=== PATIENT | female | born 1965 | race Caucasian/White ===

== ENCOUNTER 2023-08-03 16:41 | Emergency (ER) | payer OTHER, SELFPAY ==
[2023-08-03 17:01] VITALS: BP 143/82; PULSE 75; RESP 16; TEMP 37.2; O2SAT 97
--- NOTE | 2023-08-03 17:14 | ED.GENADULT ---
HPI - General Adult General Chief complaint: Skin/Abscess/Foreign Body Stated complaint: left big toe red,swollen,painful Time Seen by Provider: 08/03/23 17:14 Source: patient Mode of arrival: ambulatory Limitations: no limitations History of Present Illness HPI narrative: 58-year-old female patient presents to clinic with complaints of open sore on her foot. Patient reports that June 23 she went to the plating stripper and had him remove the left great toenail due to ingrown toenail. Patient states she had a follow-up a week later and everything was normal. Approximately 2 weeks after that patient noticed that she was having an open sore. Patient reports trying to call the plating stripper to have them look at it but they told her that they could not get her in for her a couple months. Over the last 2 weeks patient has noticed that it has increased and drainage has gotten bright red the great toe is swollen with an erythema and hot to the touch. There is purulent drainage coming from the nail bed. Patient denies fever chills and body aches. Patient states it does not really hurt. Related Data Home Medications Medication Instructions Recorded Confirmed hydrochlorothiazide 12.5 mg capsule 12.5 mg PO DAILY 08/03/23 08/03/23 paroxetine HCl 10 mg tablet 10 mg PO DAILY 08/03/23 08/03/23 progesterone micronized 100 mg 100 mg PO DAILY 08/03/23 08/03/23 capsule Allergies Allergy/AdvReac Type Severity Reaction Status Date / Time iodine Allergy Unknown Unknown Verified 08/03/23 16:56 Shrimp Allergy Unknown Unknown Uncoded 08/03/23 16:56 Review of Systems Review of Systems: CONSTITUTIONAL: Denies fever, chills, or sweats. EYES: Denies visual changes, redness, or discharge. ENT: Denies rhinorrhea, congestion, sore throat, or otalgia. CARDIOVASCULAR: Denies chest pain, palpitations, or edema. RESPIRATORY: Denies cough or dyspnea. GASTROINTESTINAL: Denies abdominal pain, nausea, vomiting, or diarrhea. GENITOURINARY: Denies dysuria or hematuria. SKIN: Denies rash or itching. Left great toe is red, swollen, and has yellow creamy discharge. Patient states that does not hurt. MUSCULOSKELETAL: Denies back pain, joint pain, or myalgia. NEUROLOGIC: Denies headache, numbness, or weakness. PSYCHIATRIC: Denies anxiety or depression. [facility] Past Medical History Medical History (Updated 08/03/23 @ 17:35 by PAOLA Mccall) Chronic venous insufficiency of lower extremity Environmental allergies GERD without esophagitis History of bilateral flank pain right side - 12/2016 History of peripheral edema Ingrowing right great toenail Rosacea Venous dermatitis legs - 2017 Surgical History Surgical History No pertinent past surgical history Family History Family History Father Patient's father is , Onset Age: 51 Family history of malignant neoplasm, Onset Age: 51 Sibling Carcinoma of colon, Onset Age: 57 Family history of malignant neoplasm of breast in first degree relative Mother Carcinoma of colon, Onset Age: 60 Social History Social History Smoking status: Former smoker Second hand tobacco smoke exposure: No Smoking end date: 10/06/12 Alcohol intake: never Substance use: never Substance use type: does not use Comments At the time of my signature I agree with nursing past medical history, surgical, social, and family history. There is no relevant family history pertinent to the presenting complaint. Exam Narrative: GENERAL: Well-appearing, well-nourished, and in no acute distress. HEAD: Normocephalic, atraumatic. EYES: PERRLA and EOMI. ENT: Nares clear, no rhinorrhea or epistaxis. Mucous membranes moist. NECK: Supple. No lymphadenopathy CHEST: Clear to auscultation. No respiratory distress. HEART: Regular rate and rhythm. No
== END 2023-08-03 17:40 | disposition home or self-care (01) ==
PROVIDERS: Emergency Provider Nurse Practitioner Family; PCP Nurse Practitioner
DX: L03.032 Cellulitis of left toe (principal); L02.612 Cutaneous abscess of left foot; B95.1 Streptococcus, group B, as the cause of diseases classified elsewhere; I73.9 Peripheral vascular disease, unspecified; I87.2 Venous insufficiency (chronic) (peripheral); K21.9 Gastro-esophageal reflux disease without esophagitis
CPT/HCPCS: 87070; 87075; 87147; 87205; 99213; G0463

== ENCOUNTER 2024-03-21 20:27 | Emergency (ER) | payer OTHER, SELFPAY ==
[2024-03-21 20:29] VITALS: BP 181/80; PULSE 80; RESP 20; TEMP 36.9; O2SAT 94
[2024-03-21] MEDS: FUROSEMIDE 20 MG TABLET PO (21:10)
--- NOTE | 2024-03-21 21:57 | ED.EXTPRO ---
HPI - Extremity Problem General Chief complaint: Extremity Problem,Nontraumatic Stated complaint: R leg swelling Time Seen by Provider: 03/21/24 20:51 History of Present Illness HPI Narrative: Patient has had swollen legs for years, and was being seen for several chronic wounds to her feet, when she noticed she had a small ulcer to her lower right leg, had been going on for about a week, and today started noticing that there is fluid coming out of it. Related Data Home Medications Medication Instructions Recorded Confirmed hydrochlorothiazide 12.5 mg capsule 12.5 mg PO DAILY 08/03/23 08/03/23 paroxetine HCl 10 mg tablet 10 mg PO DAILY 08/03/23 08/03/23 progesterone micronized 100 mg 100 mg PO DAILY 08/03/23 08/03/23 capsule Allergies Allergy/AdvReac Type Severity Reaction Status Date / Time iodine Allergy Unknown Unknown Verified 03/21/24 20:48 Shrimp Allergy Unknown Unknown Uncoded 08/03/23 16:56 Review of Systems Review of Systems: All systems reviewed & are unremarkable except as noted in HPI and below PMFSH Past Medical History Medical History (Updated 03/21/24 @ 21:12 by Marcela Henley MD) Chronic venous insufficiency of lower extremity Environmental allergies GERD without esophagitis History of bilateral flank pain right side - 12/2016 History of peripheral edema Ingrowing right great toenail Rosacea Venous dermatitis legs - 2017 Surgical History Surgical History No pertinent past surgical history Family History Family History Father Patient's father is , Onset Age: 51 Family history of malignant neoplasm, Onset Age: 51 Sibling Carcinoma of colon, Onset Age: 57 Family history of malignant neoplasm of breast in first degree relative Mother Carcinoma of colon, Onset Age: 60 Social History Social History Smoking status: Former smoker Second hand tobacco smoke exposure: No Smoking end date: 10/06/12 Alcohol intake: never Substance use: never Substance use type: does not use Exam Narrative: EXAMINATION OF ORGAN SYSTEMS/BODY AREAS: Constitutional: Vital signs per nursing GENERAL:[No acute distress, non-toxic appearing.] HEAD: Normal with no signs of head trauma. EYES: EOMI, conjunctiva normal ENT: Hearing grossly intact LUNGS: Nonlabored breathing. HEART: [Regular rate and rhythm] ABD: no distension EXT: Normal range of motion; bilateral lower extremity edema, slightly pitting, tiny ulcer right lower anterior leg, no surrounding erythema or induration or fluctuance, minimal tenderness, it is continuously weeping clear fluid SKIN: see above NEURO: [Alert and oriented x 3. No gross focal sensory or strength deficits.] PSYCH: Normal affect Course Vital Signs Vital signs: Vital Signs Temperature 98.4 F 03/21/24 20:29 Pulse Rate 80 03/21/24 20:29 Respiratory Rate 20 03/21/24 20:29 Blood Pressure 181/80 H 03/21/24 20:29 Pulse Oximetry 94 03/21/24 20:29 Oxygen Delivery Room Air 03/21/24 20:29 Temperature 98.0 F 03/21/24 22:00 Pulse Rate 74 03/21/24 22:00 Respiratory Rate 18 03/21/24 22:00 Blood Pressure 150/60 H 03/21/24 22:00 Pulse Oximetry 97 03/21/24 22:00 Oxygen Delivery Room Air 03/21/24 20:29 MDM - Extremity (Nontraumatic) MDM Narrative Medical decision making narrative: patient presenting with weeping leg ulcer, she has had chronic bilateral lower extremity edema for quite a while but today started noticing that there was water oozing out of the ulcer continuously and has soaked several pads. a taken for those on a there is no signs of infection whatsoever, the fluid leaking out is completely clear, I did place a small amount of pressure with a gauze and tape over the lesion and it does appear to have slowed /stopped. I do susp
[2024-03-21 22:00] VITALS: BP 150/60; PULSE 74; RESP 18; TEMP 36.7; O2SAT 97
== END 2024-03-21 22:00 | disposition home or self-care (01) ==
PROVIDERS: Emergency Provider Emergency Medicine; PCP Nurse Practitioner
DX: L97.909 Non-pressure chronic ulcer of unspecified part of unspecified lower leg with unspecified severity (principal); Z87.891 Personal history of nicotine dependence
CPT/HCPCS: 99283; A9270

== ENCOUNTER 2024-04-19 15:50 | Emergency (ER) | payer OTHER, SELFPAY ==
--- NOTE | 2024-04-19 18:53 | ED.EXTPRO ---
HPI - Extremity Problem General Chief complaint: Extremity Problem,Nontraumatic Stated complaint: leg wounds draining Time Seen by Provider: 04/19/24 18:26 History of Present Illness HPI Narrative: 59-year-old female presenting with draining from her leg. Patient states that she has had a very tiny ulcer on the front side of her right lower leg for the last month or 2. States that she was seen here at the beginning of last month for the same complaint. She was able to go home with Lasix and wound care and states that she was doing well. She started having itching in the area when she was using dressings should so she stopped dressingit and then she noticed it started leaking again this weekend. States that her legs are at their normal level of swelling. She denies fevers. No redness or pain. No further complaints. Related Data Home Medications Medication Instructions Recorded Confirmed hydrochlorothiazide 12.5 mg capsule 12.5 mg PO DAILY 08/03/23 08/03/23 paroxetine HCl 10 mg tablet 10 mg PO DAILY 08/03/23 08/03/23 progesterone micronized 100 mg 100 mg PO DAILY 08/03/23 08/03/23 capsule Allergies Allergy/AdvReac Type Severity Reaction Status Date / Time iodine Allergy Unknown Unknown Verified 04/19/24 18:23 Shrimp Allergy Unknown Unknown Uncoded 04/19/24 18:23 Review of Systems Review of Systems: All systems reviewed & are unremarkable except as noted in HPI and below PMFSH Past Medical History Medical History Chronic venous insufficiency of lower extremity Environmental allergies GERD without esophagitis History of bilateral flank pain right side - 12/2016 History of peripheral edema Ingrowing right great toenail Rosacea Venous dermatitis legs - 2017 Surgical History Surgical History No pertinent past surgical history Family History Family History Father Patient's father is , Onset Age: 51 Family history of malignant neoplasm, Onset Age: 51 Sibling Carcinoma of colon, Onset Age: 57 Family history of malignant neoplasm of breast in first degree relative Mother Carcinoma of colon, Onset Age: 60 Social History Social History Smoking status: Former smoker Second hand tobacco smoke exposure: No Smoking end date: 10/06/12 Alcohol intake: never Substance use: never Substance use type: does not use Exam Narrative: GENERAL: Well-appearing, nontoxic, no acute distress HEAD: Normocephalic, atraumatic. EYES: PERRLA and EOMI. ENT: Grossly unremarkable NECK: Supple. CHEST: No respiratory distress. HEART: Regular rate and rhythm EXTREMITIES: bilateral pitting edema up to mid calf; 1cm ulceration anterior R rao with clear drainage, no tenderness, no erythema, no purulence SKIN: Warm, dry, as above NEURO: Alert and oriented x3. PSYCH: Normal mood and affect. MDM - Extremity (Nontraumatic) MDM Narrative Medical decision making narrative: [age] year old female presenting with drainage from a chronic ulcer on her right leg. Exam remarkable for the above. There is no evidence of infection. The ulcer is draining clear fluid. No tenderness or erythema. States that it did improve with the Lasix and consistent wound care. Will send in for some more Lasix and advised that she restart the wound care and try to elevate the leg as much as possible. Recommend close PCP follow-up. Appropriate return precautions given. Discharged in stable condition. Differential Diagnosis Differential diagnosis: Likely cellulitis, lower extremity edema and other (Chronic leg wound) Medical Records Attestation: I reviewed the patient's medical records. Critical Care Time Critical Care Time Critical Care Time: No Discharge Plan Discharge Clinical Impres
== END 2024-04-19 19:13 | disposition home or self-care (01) ==
PROVIDERS: Emergency Provider Emergency Medicine; PCP Nurse Practitioner
DX: L97.819 Non-pressure chronic ulcer of other part of right lower leg with unspecified severity (principal); I87.2 Venous insufficiency (chronic) (peripheral); K21.9 Gastro-esophageal reflux disease without esophagitis; Z79.82 Long term (current) use of aspirin; Z79.899 Other long term (current) drug therapy
CPT/HCPCS: 99283

== ENCOUNTER 2024-07-19 10:16 | Emergency (ER) | payer OTHER, SELFPAY ==
--- NOTE | ~2024-07-19 | US_ITS ---
EXAMINATION: US venous doppler LE RT DATE: 07/19/2024 11:51 INDICATION: Right lower limb pain, swelling and erythema TECHNIQUE: Grayscale ultrasound images without and with compression and Doppler ultrasound images of the right lower extremity veins were obtained. COMPARISON: 05/25/2019 FINDINGS: The visualized portions of right common femoral vein, profunda (deep) femoral vein, femoral vein, pop liteal vein, peroneal trunk, gastrocnemius vein and greater saphenous vein outflow are patent. The po sterior tibial and peroneal veins were unable to be visualized at the right calf due primarily to pat ient body habitus. IMPRESSION: 1. No deep venous thrombosis in the right lower limb. Right posterior tibial and peroneal veins unab le to be clearly visualized due to to body habitus. Reviewed, dictated and finalized at location A. [facility] IMPRESSION: 1. No deep venous thrombosis in the right lower limb. Right posterior tibial a nd peroneal veins unable to be clearly visualized due to to body habitus.
--- NOTE | ~2024-07-19 | XR_ITS ---
EXAMINATION: XR chest 1V portable DATE: 07/19/2024 11:25 INDICATION: Right lower limb swelling TECHNIQUE: frontal view of the chest was obtained. COMPARISON: Chest radiograph dated 01/02/2017 FINDINGS: The lungs remain clear with no focal airspace opacities, pulmonary edema, pleural effusion or pneumot horax. Heart size is normal. Moderate sized hiatal hernia. IMPRESSION: 1. No acute cardiopulmonary disease. 2. Moderate-sized hiatal hernia. Reviewed, dictated and finalized at location A. [facility]
--- NOTE | 2024-07-19 11:29 | ED_ITS ---
HPI - General Adult General Chief complaint: Extremity Problem,Nontraumatic Stated complaint: RLE problems Time Seen by Provider: 07/19/24 11:13 History of Present Illness HPI narrative: 59-year-old female presenting to the emergency department for evaluation for right lower extremity swelling. Patient does have a prior history of chronic venous stasis and lymphedema and states she has had this issue previously. Patient has no prior history of PE or DVT and has no prior history of cellulitis diagnosis. Patient states that her leg swelling has worsened over the last 4-5 days and patient does have increased weeping from the leg. Patient does take Lasix. Related Data Home Medications Medication Instructions Recorded Confirmed hydrochlorothiazide 12.5 mg capsule 12.5 mg PO DAILY 08/03/23 08/03/23 paroxetine HCl 10 mg tablet 10 mg PO DAILY 08/03/23 08/03/23 progesterone micronized 100 mg 100 mg PO DAILY 08/03/23 08/03/23 capsule Allergies Allergy/AdvReac Type Severity Reaction Status Date / Time iodine Allergy Unknown Unknown Verified 04/19/24 18:23 Shrimp Allergy Unknown Unknown Uncoded 04/19/24 18:23 Review of Systems Review of Systems: All systems reviewed & are unremarkable except as noted in HPI and below PMFSH Past Medical History Medical History (Updated 07/19/24 @ 13:11 by Torsten Odonnell MD) Chronic venous insufficiency of lower extremity Environmental allergies GERD without esophagitis History of bilateral flank pain right side - 12/2016 History of peripheral edema Ingrowing right great toenail Rosacea Venous dermatitis legs - 2017 Surgical History Surgical History No pertinent past surgical history Family History Family History Father Patient's father is , Onset Age: 51 Family history of malignant neoplasm, Onset Age: 51 Sibling Carcinoma of colon, Onset Age: 57 Family history of malignant neoplasm of breast in first degree relative Mother Carcinoma of colon, Onset Age: 60 Social History Social History Smoking status: Former smoker Second hand tobacco smoke exposure: No Smoking end date: 10/06/12 Alcohol intake: never Substance use: never Substance use type: does not use Exam Narrative: APPEARANCE: Well appearing, no pain, no distress, well-nourished. HEAD: normocephalic, atraumatic. EYES: PERRLA/EOMI, conjunctivae clear. NOSE: Normal no drainage EARS:TMS clear with good light reflex. THROAT: Pharynx clear, no exudate. NECK: Supple. No adenopathy, no masses. RESPIRATORY: Airway patent, respirations nonlabored. Clear to auscultation bilaterally, no rales, rhonchi, wheezing. CARDIOVASCULAR: Regular rate and rhythm without murmurs rubs or gallops. ABDOMINAL: Soft, nontender, nondistended, normal bowel sounds MUSCULOSKELETAL: Right lower extremity edema and cutaneous changes consistent with chronic venous stasis. NEURO: Alert. Cranial nerves II through XII intact. Good gait. Good coordination SKIN: Warm, dry. Normal Color Course Vital Signs Vital signs: Vital Signs Pulse Rate 64 07/19/24 13:30 Respiratory Rate 17 07/19/24 13:30 Blood Pressure 159/82 H 07/19/24 13:30 Pulse Oximetry 97 07/19/24 13:30 Pulse Rate 64 07/19/24 13:30 Respiratory Rate 17 07/19/24 13:30 Blood Pressure 159/82 H 07/19/24 13:30 Pulse Oximetry 97 07/19/24 13:30 Medical Decision Making [facility] Narrative Medical decision making narrative: 59-year-old female presents emergency department for evaluation for right lower extremity swelling. Patient is afebrile with no leukocytosis and a stable hemoglobin of 13.3. Patient's INR is 1.0. No significant abnormalities on the patient's CMP ultrasound was negative for DVT. Exam is consistent with chronic venous stasis. Patient was treated with additional IV Lasix. Patient was encouraged close follow-up with her primary care physician. Patient does admit to having some increased salt and sugar intake over the last few days. This may be contributing to her acutely worsened edema. Patient was advised to continue to take her Lasix as directed. All questions concerns were addressed patient was well-appearing at time of discharge. Differential Diagnosis Differential Diagnosis: Cellulitis, and DVT, chronic venous stasis Vital Signs Vital Signs: Vital Signs Pulse Rate 64 07/19/24 13:30 Respiratory Rate 17 07/19/24 13:30 Blood Pressure 159/82 H 07/19/24 13:30 Pulse Oximetry 97 07/19/24 13:30 Pulse Rate 64 07/19/24 13:30 Respiratory Rate 17 07/19/24 13:30 Blood Pressure 159/82 H 07/19/24 13:30 Pulse Oximetry 97 07/19/24 13:30 Lab Data Lab results reviewed: Yes I reviewed the patient's lab results. 07/19/24 11:53 07/19/24 11:53 Labs: Lab Results 07/19/24 Range/Units 11:53 WBC 6.3 (4.5-10.0) K/mm3 RBC 4.09 L (4.2-5.4) M/mm3 Hgb 13.3 (12.0-15.0) g/dL Hct 41.4 (37.0-47.0) % MCV 101.2 H (80-100) fl MCH 32.5 (26-34) pg MCHC 32.1 (32-36) g/dl RDW 12.3 (11.5-14.5) % Plt Count 221 (150-375) k/mm3 MPV 8.9 (7.4-10.4) fl Immature Gran % (Auto) 0.6 H (0-0.5) % Neut % (Auto) 72.6 (45.5-73.1) % Lymph % (Auto) 14.7 L (18.3-44.2) % [place] % (Auto) 9.4 H (2.6-8.5) % Eos % (Auto) 2.4 (0-4.4) % Baso % (Auto) 0.3 (0.2-1.2) % Lymph # (Auto) 0.93 (0.9-3.2) K/mm3 [place] # (Auto) 0.6 (0.1-0.6) K/mm3 Eos # (Auto) 0.2 (0-0.3) K/mm3 Baso # (Auto) 0.0 (0.0-0.1) K/mm3 Abs Immat Gran (auto) 0.04 H (0.00-0.031) K/mm3 Absolute Neuts (auto) 4.6 (1.3-6.7) K/mm3 Absolute Nucleated RBC 0.000 (0.0-0.012) K/mm3 Nucleated RBC % 0.0 (0.0-0.2) % PT 13.0 (11.1-14.7) Seconds INR 1.0 APTT 26.9 (22.3-36.8) Seconds Sodium 141 (137-145) mmol/L Potassium 4.2 (3.4-5.0) mmol/L Chloride 96 L (98-107) mmol/L Carbon Dioxide 38 H (22-30) mmol/L Anion Gap 7 (4-12) mmol/L BUN 20 H (7-17) mg/dL Creatinine 0.90 (0.7-1.0) mg/dL Estim Creat Clear Calc 91 ml/min Estimated GFR > 60 (59 - ) Glucose 91 (65-110) mg/dL Calcium 8.6 (8.4-10.2) mg/dL Imaging Data Radiologist's impression: Impressions Chest X-Ray 07/19/24 11:29 IMPRESSION: 1. No acute cardiopulmonary disease. 2. Moderate-sized hiatal hernia. Venous Doppler Study 07/19/24 12:01 IMPRESSION: 1. No deep venous thrombosis in the right lower limb. Right posterior tibial and peroneal veins unable to be clearly visualized due to to body habitus. Discharge Plan Discharge Clinical Impression: Chronic venous insufficiency of lower extremity, Edema of right lower extremity Patient Disposition: Home, Self-Care Condition: Stable Instructions: Antibiotic Form, Leg Edema (ED) Additional Instructions: Have close follow-up with your primary care physician. If you have any worsening symptoms then please call or return to the emergency department. Prescriptions: No Action paroxetine HCl 10 mg tablet 10 mg PO DAILY hydrochlorothiazide 12.5 mg capsule 12.5 mg PO DAILY progesterone micronized 100 mg capsule 100 mg PO DAILY sulfamethoxazole-trimethoprim [Bactrim DS] 800-160 mg tablet 1 tablet PO Q12H 5 Days Qty: 10 0RF mupirocin 2 % ointment 1 applic topical BID Qty: 22 0RF penicillin V potassium 500 mg tablet 500 mg PO Q12H 10 Days Qty: 20 0RF furosemide [Lasix] 20 mg tablet 20 mg PO DAILY Qty: 10 0RF furosemide [Lasix] 20 mg tablet 20 mg PO DAILY Qty: 10 0RF Follow-up/Referrals: Yogesh,SUBHASH Palmer [Primary Care Provider] - Stand Alone Forms: Work/School Release IP
[2024-07-19 12:01] LABS: Basophils Percent Auto 0.3 % (0.2-1.2); Eosinophils Absolute Auto 0.2 K/mm3 (0-0.3); Eosinophils Percent Auto 2.4 % (0-4.4); Hematocrit 41.4 % (37.0-47.0); Hemoglobin 13.3 g/dL (12.0-15.0); Immature Granulocyte Absolute 0.04 K/mm3 (0.00-0.031); Immature Granulocyte Percent A 0.6 % (0-0.5); Lymphocytes Absolute Auto 0.93 K/mm3 (0.9-3.2); Lymphocytes Percent Auto 14.7 % (18.3-44.2); Mean Corpuscular HGB Conc 32.1 g/dl (32-36); Mean Corpuscular Hemoglobin 32.5 pg (26-34); Mean Corpuscular Volume 101.2 fl (80-100); Mean Platelet Volume 8.9 fl (7.4-10.4); Monocytes Absolute Auto 0.6 K/mm3 (0.1-0.6); Monocytes Percent Auto 9.4 % (2.6-8.5); Neutrophils Absolute Auto 4.6 K/mm3 (1.3-6.7); Neutrophils Percent Auto 72.6 % (45.5-73.1); Platelet Count Result 221 k/mm3 (150-375); Red Blood Count 4.09 M/mm3 (4.2-5.4); Red Cell Distribution Width 12.3 % (11.5-14.5); White Blood Count 6.3 K/mm3 (4.5-10.0)
[2024-07-19 12:14] LABS: Partial Thromboplastin Time 26.9 Seconds (22.3-36.8)
[2024-07-19 12:17] LABS: Anion Gap 7 mmol/L (4-12); Blood Urea Nitrogen 20 mg/dL (7-17); Calcium 8.6 mg/dL (8.4-10.2); Carbon Dioxide 38 mmol/L (22-30); Chloride 96 mmol/L (98-107); Estimated CRCL calculation 91 ml/min; Estimated Glomerular Filt Rate > 60; Glucose 91 mg/dL (65-110); Potassium 4.2 mmol/L (3.4-5.0); Sodium 141 mmol/L (137-145)
[2024-07-19] MEDS: FUROSEMIDE INJ 40 MG/4 ML VIAL IV PUSH (13:16)
[2024-07-19 13:30] VITALS: BP 159/82; PULSE 64; RESP 17; O2SAT 97
== END 2024-07-19 13:31 | disposition home or self-care (01) ==
PROVIDERS: Emergency Provider Emergency Medicine; PCP Nurse Practitioner
DX: I87.2 Venous insufficiency (chronic) (peripheral) (principal); R60.0 Localized edema; K21.9 Gastro-esophageal reflux disease without esophagitis; Z87.891 Personal history of nicotine dependence; K44.9 Diaphragmatic hernia without obstruction or gangrene; Z79.899 Other long term (current) drug therapy
CPT/HCPCS: 36415; 71045; 80048; 85025; 85610; 85730; 93971; 96374; 99284; J1940

== ENCOUNTER 2025-05-31 12:05 | Emergency (ER) | payer OTHER, SELFPAY ==
--- NOTE | ~2025-05-31 | XR_ITS ---
EXAMINATION: XR finger 2nd RT min 2V, 05/31/2025 12:15 CDT HISTORY: lac TO RT 2ND DIGIT COMPARISON: No comparisons available. Findings: No acute fracture or malalignment. No significant degenerative changes. Soft tissues unremarkable. Impression: No acute fracture or malalignment. Reviewed, dictated and finalized at location A. Impression: No acute fracture or malalignment.
[2025-05-31 12:11] VITALS: BP 137/78; PULSE 79; RESP 18; TEMP 36.1; O2SAT 96
--- NOTE | 2025-05-31 12:58 | ED.GENADULT ---
HPI - General Adult General Chief complaint: Wound/Laceration Stated complaint: Laceration Time Seen by Provider: 05/31/25 12:36 History of Present Illness HPI narrative: Is a 60-year-old female who presents ER with avulsion laceration from a mandoline to her right index finger. Right at the tip involves a bit at the nail. No bone exposure. Tetanus up-to-date. No numbness or tingling. Bleeding controlled. Related Data Home Medications ?Medication ?Instructions ?Recorded ?Confirmed ?Last Taken ?Type hydrochlorothiazide 12.5 mg capsule 12.5 mg PO DAILY 08/03/23 08/03/23 Unknown History paroxetine HCl 10 mg tablet 10 mg PO DAILY 08/03/23 08/03/23 Unknown History progesterone micronized 100 mg 100 mg PO DAILY 08/03/23 08/03/23 Unknown History capsule Allergies Allergy/AdvReac Type Severity Reaction Status Date / Time iodine Allergy Unknown Unknown Verified 05/31/25 12:13 Shrimp Allergy Unknown Unknown Uncoded 04/19/24 18:23 Review of Systems Constitutional: Constitutional: Reports no additional constitutional complaints Integumentary/Breasts: Skin/Breast: Reports system reviewed and no additional complaints, except as docu Neurologic: Reports system reviewed and no additional complaints, except as documented PMFSH Past Medical History Medical History (Updated 05/31/25 @ 13:04 by Luis Miguel Pascual MD) Chronic venous insufficiency of lower extremity Rosacea Ingrowing right great toenail Environmental allergies GERD without esophagitis Venous dermatitis legs - 2016 History of bilateral flank pain right side - 12/2016 History of peripheral edema Surgical History Surgical History No pertinent past surgical history Family History Family History Father Patient's father is , Onset Age: 51 Family history of malignant neoplasm, Onset Age: 51 Sibling Carcinoma of colon, Onset Age: 57 Family history of malignant neoplasm of breast in first degree relative Mother Carcinoma of colon, Onset Age: 60 Social History Social History Smoking status: Former smoker Second hand tobacco smoke exposure: No Smoking end date: 10/06/12 Alcohol intake: never Substance use: never Substance use type: does not use Exam Narrative: GENERAL: Well-appearing, well-nourished, and in no acute distress. HEAD: Normocephalic, atraumatic. EXTREMITIES: Normal range of motion. No edema. SKIN: Warm, dry, small avulsion right 2nd digit at the tip involving the nail tip of the nail and nailbed. NEURO: Alert and oriented x3. PSYCH: Normal mood and affect. Course Course Emergency Course: Skin glue applied to help with discomfort potential rebleeding. Patient also given aluminum foam finger splint since she has a Band-Aid allergy and will have difficulty covering the area. Vital Signs Vital signs: Vital Signs Temperature 97.0 F L 05/31/25 12:11 Pulse Rate 79 05/31/25 12:11 Respiratory Rate 18 05/31/25 12:11 Blood Pressure 137/78 05/31/25 12:11 Pulse Oximetry 96 05/31/25 12:11 Temperature 97.0 F L 05/31/25 12:11 Pulse Rate 79 05/31/25 12:11 Respiratory Rate 18 05/31/25 12:11 Blood Pressure 137/78 05/31/25 12:11 Pulse Oximetry 96 05/31/25 12:11 Medical Decision Making Vital Signs Vital Signs: Vital Signs Temperature 97.0 F L 05/31/25 12:11 Pulse Rate 79 05/31/25 12:11 Respiratory Rate 18 05/31/25 12:11 Blood Pressure 137/78 05/31/25 12:11 Pulse Oximetry 96 05/31/25 12:11 Temperature 97.0 F L 05/31/25 12:11 Pulse Rate 79 05/31/25 12:11 Respiratory Rate 18 05/31/25 12:11 Blood Pressure 137/78 05/31/25 12:11 Pulse Oximetry 96 05/31/25 12:11 Imaging Data Radiologist's impression: ITS Impressions Finger X-Ray 05/31/25 12:51 Impression: No acute fracture or malalignment. Discharge Plan Discharge Clinical Impression: Avulsion of skin Patient Disposition: Home Condition: Stable Instructions: Skin Avulsion (ED), Skin Adhesive Care (ED) Additional Instructions: Return to the ER if your skin is red and hot, you have redness tracking up the arm, you develop fever 100.4? F, or you have additional concerns. Patient Language: Welsh Prescriptions: No Action paroxetine HCl 10 mg tablet 10 mg PO DAILY hydrochlorothiazide 12.5 mg capsule 12.5 mg PO DAILY progesterone micronized 100 mg capsule 100 mg PO DAILY sulfamethoxazole-trimethoprim [Bactrim DS] 800-160 mg tablet 1 tablet PO Q12H 5 Days Qty: 10 0RF mupirocin 2 % ointment 1 applic topical BID Qty: 22 0RF penicillin V potassium 500 mg tablet 500 mg PO Q12H 10 Days Qty: 20 0RF furosemide [Lasix] 20 mg tablet 20 mg PO DAILY Qty: 10 0RF furosemide [Lasix] 20 mg tablet 20 mg PO DAILY Qty: 10 0RF Follow-up/Referrals: Yogesh,SUBHASH Palmer [Primary Care Provider, Unknown] - 1 Week Stand Alone Forms: Work/School Release IP
--- OUTSIDE RECORDS SUMMARY | 2025-05-31 14:10 | XMS_ITS | Clinical Summary ---
Author Organization [facility] Address [address] [place] [address] Care Team Providers Care Low Pressure Kettle Operator Name Role Phone Aminah Zuñiga NP Primary Care Provider [phone] Allergies Active Allergy Reactions Criticality Noted Date Comments Iodine Hives,Rash Low 11/23/2020 Shrimp (Diagnostic) Hives,Rash Low 11/23/2020 Tape Rash,Redness,Swelling Low 11/05/2024 Medications omeprazole 20 MG capsule Take 1 capsule (20 mg total) by mouth daily. Active progesterone 100 MG capsule Take 1 capsule (100 mg total) by mouth nightly at bedtime. 01/11/20 22 Active PARoxetine (PAXIL) 10 MG tablet Take 1 tablet (10 mg total) by mouth nightly at bedtime. 05/08/20 23 Active furosemide (LASIX) 20 MG tabletIndications: Lower extremity edema Take 0.5 tablets (10 mg total) by mouth daily. 90 tablet 1 08/03/20 24 Active Additional Information Patient taking differently: 20 mgOral Daily, Reported on 03/08/2025 meloxicam (MOBIC) 15 MG tabletIndications: Other chronic pain Take 1 tablet by mouth once daily 30 tablet 08/09/20 24 Active Additional Information Patient not taking.Reported on 2025 furosemide (LASIX) 40 MG tabletIndications: Lower extremity edema Take 1 tablet by mouth once daily 90 tablet 12/17/19 25 Active Additional Information Patient not taking.Reported on 03/08/2025 gabapentin (NEURONTIN) 100 MG capsuleIndications :Nerve pain TAKE 1 CAPSULE BY MOUTH THREE TIMES DAILY 90 capsule 12/17/19 25 Active olopatadine (PATANOL) 0.1 % ophthalmic solutionIndication s:Allergic conjunctivitis of both eyes Place 1 drop into both eyes 2 (two) times daily. 5 mL 03/08/20 25 Active predniSONE (DELTASONE) 10 mg tabletIndications: Allergic conjunctivitis of both eyes 2 pills daily for 5 days then one pill daily for 5 days 15 tablet 03/08/20 25 Active potassium chloride CR (KLOR-CON M) 10 MEQ tabletIndications: Lower extremity edema Take 1 tablet by mouth once daily 90 tablet 1 04/22/20 25 Active Active Problems Problem Noted Date Diagnosed Date Lower extremity edema 08/06/2022 Overview (2025): Improving with furosemide 50 mg daily. Assessment & Plan (2025 9:25 AM CDT): Resume furosemide and potassium 10 meq daily Gastroesophageal reflux dise ase, unspecified whether esophagitis present 08/06/2022 Overview (2025): Chronic condition. Well-controlled with omeprazole 20 mg daily. Her diet is poor and has no intentions of wanting to clean up her diet. Assessment & Plan (2025 10:43 AM CDT): Chronic condition. Resume omeprazole 20 mg daily as pt needs to manage her symptoms. Pt is not willing to make any dietand lifestyle changes for weight loss. Class 3 severe obesity with body mass index (BMI) of 50.0 to 59.9 in adult, unspecified obesity type, unspecified whether serious comorbidity present 08/06/2022 Assessment & Plan (2025 10:58 AM CDT): Encourage diet and lifestyle changes to assist with weight loss. Is not interested in further assistance with weight loss. Screening for lung cancer 02/01/2021 Assessment & Plan (2025 10:53 AM CDT): The patient and I discussed benefits and harms of screening, follow-up diagnostic testing, over-diagnosis, false positive rate and radiation exposure. We also discussed the importance of adherence to annual lung cancer Low Dose CT screening, impact of co-morbidities, and ability or willingness to undergo diagnosis and treatment. Finally, we discussed the importance of maintaining cigarette smoking abstinence as a former smoker. Stasis dermatitis of both legs 11/24/2020 Hypertension, unspecified type 11/24/2020 Overview (2025): Chronic condition, controlled with furosemide 50mg daily. Her lower extremity swelling/wheeping has greatly improved with use. Assessment & Plan (2025 9:25 AM CDT): Chronic condition, controlled. No changes needed at this time. Venous insufficiency of both lower extremities 0 11/24/2020 Resolved Problems Problem Noted Date Diagnosed Date Resolved Date Numbness and tingling of right thumb 01/14/2023 2025 Plantar fasciitis 11/23/2020 2025 Encounters Date Type Department Care Team Description 05/25/2025 Telephone [facility] Family Medicine [facility] [address] [address] Aminah Zuñiga NP Employment Physical 03/08/2025 1:40 PM CDT Office Visit [facility] Family & Internal Medicine [facility] [address] [place] [address] Kathia Smith PA Eye Problem (Swelling to eyes-getting worse this morning-some itching) 03/08/2025 Travel from Last 3 Months Immunizations Immunization Administration Dates Next Due Flucelvax 6 Months+ (Prefilled Syringe) 10/07/19 Fluzone 6 Months+ Quad (0.5 mL Prefilled Syringe) 08/06/2022 Hepatitis A (Generic) 01/10/2016,12/14/2014 Hepatitis A (Havrix [address]) 01/10/2016,2014 Hepatitis B (Generic: Adult) 01/10/2016 Hepatitis B Vac Recomb Adj 2 0 Mcg/0.5ml Im Sosy 01/24/2023 Influenza Adult (Generic) 10/01/2021,10/07/2019 PFIZER COVID-19 (ORIGINAL FO RMULATION, PURPLE CAP) mRNA, LNP-S, PF, 30 MCG/0.3 ML DOSE 10/01/2021,01/05/2021,12/15/2020 Shingrix 11/04/2022,08/06/2022 Tdap (Adacel) 08/06/2022 Tdap (Boostrix) 09/18/2024 Family History Medical History Relation Comments Cancer Father Leukemia No Known Problems Maternal Grandfather Diabetes Maternal Grandmother Cancer Mother Colon Colon Cancer Mother Cancer Paternal Aunt Breast No Known Problems Paternal Grandfather No Known Problems Paternal Grandmother Cancer Sister 1 Colon Colon Cancer Sister 1 Breast Cancer Sister 2 Cancer Sister 2 Breast Relation Status Comments Father Maternal Grandfather Maternal Grandmother Mother Paternal Aunt Paternal Grandfather Paternal Grandmother Sister 1 Sister 2 Social History Tobacco Use Types Packs/Day Years Used Date Smoking Tobacco: Former Cigarettes 1 34 0 10/06/1978 - 10/06/2012 Passive Smoke Exposure: Past Smokeless Tobacco: Never Tobacco Cessation:Counseling Given: No Alcohol Use Standard Drinks/Week Comments Yes 0 (1 standard drink = 0.6 oz pur e alcohol) Barely. Maybe twice a year. AUDIT-C Answer Date Recorded Frequency of Alcohol Consumption Not on file 12/23/2020 Q2: How many drinks containi ng alcohol do you have on a typical day when you are drinking? 1 or 2 12/23/2020 Q3: How often do you have si x or more drinks on one occasion? 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 Gender Identity Female 12/23/2020 11:19 AM CDT Sexual Orientation Choose not to disclose 2021 4:58 AM CDT Last Filed Vital Signs Vital Sign Reading Time Taken Comments Blood Pressure 138/77 03/08/2025 1:35 PM CDT Pulse 66 03/08/2025 1:35 PM CDT Temperature 36.7 C (98 F) 03/08/2025 1:35 PM CDT Respiratory Rate 20 03/08/2025 1:35 PM CDT Oxygen Saturation 98% 03/08/2025 1:35 PM CDT Inhaled Oxygen Concentration - - Weight 153.8 kg (339 lb) 03/08/2025 1:35 PM CDT Height 167.6 cm (5' 6) 03/08/2025 1:35 PM CDT Body Mass Index 54.72 03/08/2025 1:35 PM CDT Plan of Treatment Upcoming Encounters Date Type Department Care Team (Late st Contact Info) Description 07/14/2025 2:40 PM CDT Office Visit [facility] Family Medicine - [place] [address] [facility] [address] [place] [id number] Aminah Zuñiga NP [address] [place] [address] Health Maintenance Due Date Last Done Comments Cervical Cancer Screening Pap Smear (Age 30 to 64) Every 3 Years 1967 Kidney Health Evaluation 1967 Pneumococcal Vaccine: 50+ Years (1 of 2 - PCV) 1986 Cervical Cancer Screening Pap with HPV Testing (Age 30 to 64) Every 5 Years 1997 Cervical Cancer Screening with HPV 1997 Hepatitis B Vaccines (3 of 3 - 19+ 3-dose series) 03/21/2023 01/24/2023, 01/10/2016 Lipid Panel 05/07/2025 05/07/2024, 12/0 01/2022, 12/01/2020 COVID-19 Vaccine (2024- season) 2025 10/01/2021, 01/05/2021, 12/15/2020 Mammogram Screening 07/10/2025 07/10/2024, 06/25/2023, 05/14/2022, Additional history exists Hemoglobin A1C 07/14/2025 2025, 0810/2023, 12/01/2020 Annual Physical 2026 2025, 08/06/2022 Lung Cancer Screening 02/06/2026 02/06/2025, 023 Diabetes: Retinopathy Eye Exam 02/11/2026 Postponed from 1985 (Future Appointment) Colorectal Cancer Screening Colonoscopy (10 Years) 03/27/2026 03/27/2021 DTaP, Tdap and Td Vaccines (3 - Td or Tdap) 09/18/2034 09/18/2024, 08/06/2022 Hepatitis C Completed 12/01/2020 Zoster Vaccines Completed 11/04/2022, 08/06/2022 PHQ-2 (Physician [place]) Completed 2025 Meningococcal B Vaccine Aged Out No l onger eligible based on patient's age to complete this topic Meningococcal Vaccine Aged Out No digna oanh eligible based on patient's age to complete this topic RSV Immunizations Under 20 Months Aged Out No longer eligible based on patient's age to complete this topic Procedures Procedure Name Priority Date/Time Associated Diagnosis Comments CT LUNG SCREENING Routine 02/06/2025 10: 30 AM CDT Screening for lung cancer HEMOGLOBIN, GLYCOSYLATED Routine 2025 9:29 AM CDT Impaired fasting glucose MG SCREENING W SHANIQUE SHANE DIGI Routine 07/10/2024 1:59 PM CDT Visit for screening mammogram LIPID PANEL Routine 05/07/2024 7:35 AM CDT Screening for lipoid disorders HEPATITIS C ANTIBODY W/RFX TO HCV RNA Routine 12/01/2020 3:35 PM CDT from Last 3 Months or Most Recently Relevant to Health Maintenance Results * [[id number]] CT LUNG SCREENING (02/06/2025 10:30 AM CDT) Anatomical Region Laterality Modality Chest Computed Tomogra phy 02/15/2025 9:10 AM CDT Impressions 02/15/2025 9:13 AM CDT IMPRESSION: 1. LUNG-RADS category 1: Negative-no nodules and definitely benign nodules. 2. LUNG-RADS category S: Negative, no new/unknown potentially significant incidental findings requiring urgent additional evaluation. 3. Other incidental findings as above. RECOMMENDATIONS: Follow-up LDCT Chest in 12 months (on or around 02/06/2026). Referred By: AMINAH ZUÑIGA Interpreted By: Ephraim Bright MD, 02/15/2025 9:10 AM Narrative 02/15/2025 9:13 AM CDT [place] [id number] EXAM: LUNG SCREENING LOW-DOSE CT THORAX WITHOUT CONTRAST DATE: 02/06/2025 10:18 AM HISTORY: Asymptomatic patient meeting NCCN high-risk criteria for lung screening. COMPARISON: 10/24/2022 TECHNIQUE: Noncontrast, helical, low-dose CT (LDCT) chest per standard departmental protocol. Automated exposure control was utilized for dose reduction. FINDINGS: Lung Screening Specific (LUNG-RADS): No significant nodules. Potentially Significant Incidentals (LUNG-RADS category S): None. Pulmonary Incidentals: None. Other Incidentals: Extrapulmonary soft tissues tissue evaluation significantly limited due to low- dose technique. Coronary calcifications and atherosclerosis. Moderate degenerative changes of the spine. Procedure Note Ephraim Bright MD - 02/15/[address] [address] EXAM: LUNG SCREENING LOW-DOSE CT THORAX WITHOUT CONTRAST DATE: 02/06/2025 10:18 AM HISTORY: Asymptomatic patient meeting NCCN high-risk criteria for lungscreening. COMPARISON: 10/24/2022 TECHNIQUE: Noncontrast, helical, low-dose CT (LDCT) chest per standarddepartmental protocol. Automated exposure control was utilized for dosereduction. FINDINGS: Lung Screening Specific (LUNG-RADS): No significant nodules. Potentially Significant Incidentals (LUNG-RADS category S): None. Pulmonary Incidentals: None. Other Incidentals: Extrapulmonary soft tissues tissue evaluation significantly limited due tolow- dose technique. Coronary calcifications and atherosclerosis. Moderate degenerative changes of the spine. IMPRESSION: 1. LUNG-RADS category 1: Negative-no nodules and definitely benignnodules. 2. LUNG-RADS category S: Negative, no new/unknown potentially significantincidental findings requiring urgent additional evaluation. 3. Other incidental findings as above. RECOMMENDATIONS: Follow-up LDCT Chest in 12 months (on or around02/06/2026). Referred By: AMINAH ZUÑIGA Interpreted By: Ephraim Bright MD, 02/15/2025 9:10 AM Aminah Zuñiga GLUE LINE OPERATOR CT Final Res ult * HEMOGLOBIN, GLYCOSYLATED (2025 9:29 AM CDT) HGB A1C 5.3 4.5 - 6.2 % 2025 4:36 PM CDT [facility] ESTIMATED AVG GLUCOSE 105 74 - 106 MG/DL 2025 4:36 PM CDT [facility] 2025 9:29 AM CDT Aminah Zuñiga GLUE LINE OPERATOR LABORATORY Final Res ult [facility] [address] [place] [address], [place] [phone] * MG SCREENING W SHANIQUE SHANE DIGI (07/10/2024 1:59 PM CDT) Anatomical Region Laterality Modality Breast Bilateral Mammography 07/10/2024 4:48 PM CDT Impressions 07/10/2024 4:51 PM CDT ===== IMPRESSION: ===== 1. Stable mammographic appearance with no new findings to suggest malignancy in either breast. Assessment: ACR BI-RADS 2 - BENIGN FINDING(S) Recommendation: 1:Routine Screening Bilateral Comments: Ordered By: AMINAH ZUÑIGA Interpreted By: Veronica No, 07/10/2024 4:48 PM Narrative 07/10/2024 4:51 PM CDT [facility] [address] [place] [address] EXAMINATION: Digital bilateral screening mammogram with 3-D tomosynthesis EXAM DATE/TIME: 07/10/2024 1:41 PM REASON FOR EXAM: Screening Breast carcinoma in sister at undisclosed age. COMPARISON: 05/14/2022. 06/25/2023 Technique: Digital screening mammography of both breasts was performed in addition to 3-D Tomosynthesis technique. This study was read with the assistance of a computer-aided detection system. Tissue density: The breasts are almost entirely fatty. Findings: Similar multiple benign appearing bilateral calcifications. There is no new focal asymmetry, dominant mass lesion, area of skin thickening, or cluster of suspicious appearing calcifications in either breast to suggest malignancy. us Aminah Zuñiga GLUE LINE OPERATOR MAMMO Final Res ult * (ABNORMAL) LIPID PANEL (05/07/2024 7:35 AM CDT) CHOLESTEROL 186 <200 MG/DL 05/07/2024 4:39 PM CDT [facility] TRIGLYCERIDES 107 <150 MG/DL 05/07/2024 4:39 PM CDT [facility] HDL 53 >40 MG/DL 05/07/2024 4:39 PM CDT [facility] LDL-C 112(H) <100 MG/DL 05/07/2024 4:39 PM CDT [facility] VLDL CALCULATION 21 5 - 28 MG/DL 05/07/2024 4:39 PM CDT [facility] CHOL/HDL RATIO 3.5 0.0 - 4.0 05/07/2024 4:39 PM CDT [facility] LDL/HDL 2.1 0.41 - 2.13 05/07/2024 4:39 PM CDT [facility] NON HDL CHOLESTEROL 133 <140 MG/DL 05/07/2024 4:39 PM CDT [facility] 05/07/2024 7:35 AM CDT Aminah Zuñiga GLUE LINE OPERATOR LABORATORY Final Res ult [facility] [address] [place] [address], * HEPATITIS C ANTIBODY W/RFX TO HCV RNA (12/01/2020 3:35 PM CDT) HEPATITIS C AB NON-REACTI VE NON-REACT MIRYAM [facility] SIGNAL TO CUTOFF 0.04 <[address] [facility] Comment: HCV antibody was non-reactive. There is no laboratory evidence of HCV infection. In most cases, no further action is required. However, if recent HCV exposure is suspected, a test for HCV RNA (test code 91658) is suggested. For additional information please refer to http://education.Conjecta.TapZen/faq/NKV40r6 (This link is being provided for informational/ educational purposes only.) 12/01/2020 3:35 PM CDT 12/01/2020 3:36 PM CDT Aminah Zuñiga NP LABORATORY Final Res ult [facility] [address] [facility] [place] [address] from Last 3 Months or Most Recently Relevant to Health Maintenance Insurance [facility] Care Teams Low Pressure Kettle Operator Relationship Specialty Start Date End Date Aminah Zuñiga NP [address] [place] [address] PCP - General NURSE PRACTITIONER 10/24/20
--- OUTSIDE RECORDS SUMMARY | 2025-05-31 14:10 | XMS_ITS | Encounter Summary ---
Author Organization [facility] Address [address] [place] [address] Care Team Providers Care Regulatory Affairs Director Name Role Phone Aminah Zuñiga NP Primary Care Provider [phone] Encounter Details Date Type Department Care Team (Late st Contact Info) Description 06/24/[address] [facility] Patient Accounts [address] [place] [address] [facility] Provider Action Required Social History Tobacco Use Types Packs/Day Years Used Date Smoking Tobacco: Former Cigarettes 1 34 0 10/06/1978 - 10/06/2012 Passive Smoke Exposure: Past Smokeless Tobacco: Never Alcohol Use Standard Drinks/Week Comments Yes 0 [...] Date Recorded Patient Health Questionnaire-2 Score 0 09/24/2023 Comments No Sex and Gender Information Value Date Recorded Sex Assigned at Female 12/23/2020 11:19 AM CDT 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 SUPERINTENDENT Gender Identity Female 12/23/2020 11:19 AM CDT Sexual Orientation Choose not to disclose 2021 4:58 AM CDT documented as of this encounter Plan of Treatment Upcoming Encounters Date Type Department Care Team (Late st Contact Info) Description 07/14/2025 2:40 PM CDT Office Visit [facility] Family Medicine - [place] [address] [facility] [address] [place] [address] Aminah Zuñiga NP [address] [place], [place] [address] documented as of this encounter Visit Diagnoses Not on filedocumented in this encounter Additional Health Concerns Assessment Noted Time PHQ-9 Depression Total Score: 4 11/24/19 21 3:28 PM STATIONS SUPERINTENDENT documented as of this encounter Care Teams Regulatory Affairs Director Relationship Specialty Start Date End Date Aminah Zuñiga NP [address] [place] [address] PCP - General NURSE PRACTITIONER 10/24/20 documented as of this encounter
--- OUTSIDE RECORDS SUMMARY | 2025-05-31 14:10 | XMS_ITS | Encounter Summary ---
Author Organization [facility] Address [address] [place] [address] Care Team Providers Care General Inspector Name Role Phone Aminah Zuñiga NP Primary Care Provider +1 [phone] Encounter Details Date Type Department Care Team (Late st Contact Info) Description 03/24/2021 Prep for Procedure [facility] One Day [facility] [place], [place] [phone] Christian Pena MD [address] [address] Social History Tobacco Use Types Packs/Day Years Used Date Smoking Tobacco: Former Cigarettes 1 34 0 09/16/1982 - 09/16/2016 Smokeless Tobacco: Never Alcohol Use Standard Drinks/Week Comments Yes 0 (1 standard drink = 0.6 oz pur e alcohol) AUDIT-C Answer Date Recorded Frequency of Alcohol Consumption Not on file 12/23/2020 Q2: How many drinks containi ng alcohol do you have on a typical day when you are drinking? 1 or 2 12/23/2020 Q3: How often do you have si x or more drinks on one occasion? Never 12/23/2020 PHQ-2 Answer Date Recorded PHQ-2 Score - If the patient scores above 3, please move on to questions 3-9 1 11/23/2020 Comments No Sex and Gender Information Value Date Recorded Sex Assigned at Female 12/23/2020 11:19 AM CDT 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 PACKING AND FINAL ASSEMBLY SUPERVISOR Gender Identity Female 12/23/2020 11:19 AM CDT Sexual Orientation Choose not to disclose 2021 4:58 AM CDT COVID-19 Exposure Response Date Recorded In the last month, have you been in contact with someone who was confirmed or suspected to have Coronavirus / COVID-19? No / Unsure 03/27/2021 9:38 AM CDT documented as of this encounter Plan of Treatment Upcoming Encounters Date Type Department Care Team (Late st Contact Info) Description 07/14/2025 2:40 PM CDT Office Visit [facility] Family Medicine - [place] [address] [facility] [address] [place] [address] Aminah Zuñiga NP [address] [place] [address] documented as of this encounter Visit Diagnoses Diagnosis Colon cancer screening- Primary Special screening for malignant neoplasms, colon documented in this encounter Additional Health Concerns Infection Onset Date Last Indicated Resolved Time COVID-19 Rule Out 06/17/2023 06/17/2023 06/17/2023 3:17 PM CDT Assessment Noted Time PHQ-9 Depression Total Score: 4 11/24/19 3:28 PM PACKING AND FINAL ASSEMBLY SUPERVISOR documented as of this encounter Care Teams General Inspector Relationship Specialty Start Date End Date Aminah Zuñiga NP [address] [place], [place] [address] PCP - General NURSE PRACTITIONER 10/24/20 documented as of this encounter
--- OUTSIDE RECORDS SUMMARY | 2025-05-31 14:10 | XMS_ITS | Encounter Summary ---
Author Organization [facility] Address [address] [place] [address] Care Team Providers Care Licensed Physical Therapist Assistant Name Role Phone Aminah Zuñiga NP Primary Care Provider +1 [phone] Encounter Details Date Type Department Care Team (Late st Contact Info) Description 03/20/[address] 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 No / Unsure 03/15/2021 11:15 AM CDT documented as of this encounter Plan of Treatment Upcoming Encounters Date Type Department Care Team (Late st Contact Info) Description 07/14/2025 2:40 PM CDT Office Visit [facility] Family Medicine - [place] [address] [facility] [address] [place] [address] Aminah Zuñiga NP [address] [place] [address] documented as of this encounter Visit Diagnoses Not on filedocumented in this encounter Additional Health Concerns Infection Onset Date Last Indicated Resolved Time COVID-19 Rule Out 06/17/2023 06/17/2023 06/17/2023 3:17 PM CDT Assessment Noted Time PHQ-9 Depression Total Score: 4 11/24/19 21 3:28 PM MARKETING AND PROMOTIONS MANAGER documented as of this encounter Care Teams Licensed Physical Therapist Assistant Relationship Specialty Start Date End Date Aminah Zuñiga NP [address] [place] [address] PCP - General NURSE PRACTITIONER 10/24/20 documented as of this encounter
--- OUTSIDE RECORDS SUMMARY | 2025-05-31 14:10 | XMS_ITS | Encounter Summary ---
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 AND 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 Gender Identity Female 12/23/2020 11:19 AM CDT Sexual Orientation Choose not to disclose 2021 4:58 AM CDT documented as of this encounter Plan of Treatment Upcoming Encounters Date Type Department Care Team (Late st Contact Info) Description 07/14/2025 2:40 PM CDT Office Visit [facility] Family Medicine [facility] [address] [facility] [address] [place] [address] Aminah Zuñiga NP [address] [place] [address] documented as of this encounter Visit Diagnoses Not on filedocumented in this encounter Additional Health Concerns Assessment Noted Time PHQ-9 Depression Total Score: 4 11/24/19 21 3:28 PM BUFFING TURNER AND COUNTER documented as of this encounter Care Teams Director Of Grants Relationship Specialty Start Date End Date Aminah Zuñiga NP [address] [place] [address] PCP - General NURSE PRACTITIONER 10/24/20 documented as of this encounter
--- OUTSIDE RECORDS SUMMARY | 2025-05-31 14:10 | XMS_ITS | Encounter Summary ---
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 Gender Identity Female 12/23/2020 11:19 AM CDT Sexual Orientation Choose not to disclose 2021 4:58 AM CDT documented as of this encounter Plan of Treatment Upcoming Encounters Date Type Department Care Team (Late st Contact Info) Description 07/14/2025 2:40 PM CDT Office Visit [facility] Family Medicine [facility] [address] [facility] [address] [place] [address] Aminah Zuñiga NP [address] [place] [address] documented as of this encounter Visit Diagnoses Not on filedocumented in this encounter Additional Health Concerns Assessment Noted Time PHQ-9 Depression Total Score: 4 11/24/19 21 3:28 PM OIL EXPERT documented as of this encounter Care Teams Manager Diabetes Relationship Specialty Start Date End Date Aminah Zuñiga NP [address] [place] [address] [place] [address] PCP - General NURSE PRACTITIONER 10/24/20 documented as of this encounter
--- OUTSIDE RECORDS SUMMARY | 2025-05-31 14:10 | XMS_ITS | Encounter Summary ---
Author Organization [facility] Address [address] [place] [address] Care Team Providers Care Hoistman Name Role Phone Aminah Zuñiga NP Primary Care Provider +1 -[phone] Encounter Details Date Type Department Care Team (Late st Contact Info) Description 01/04/2021 MyCInvierteMe,SLt Message Enc [facility] Family Medicine - [place] [address] [facility] [address] [place] [address] Aminah Zuñiga NP [address] [place] [address] follow up on arterial doppler. 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 No / Unsure 01/04/2021 11:07 AM CDT documented as of this encounter Plan of Treatment Upcoming Encounters Date Type Department Care Team (Late st Contact Info) Description 07/14/2025 2:40 PM CDT Office Visit [facility] Family Medicine - [place] [address] [facility] [address] [place] [address] Aminah Zuñiga NP [address] [place] [address] documented as of this encounter Visit Diagnoses Not on filedocumented in this encounter Additional Health Concerns Infection Onset Date Last Indicated Resolved Time COVID-19 Rule Out 06/17/2023 06/17/2023 06/17/2023 3:17 PM CDT Assessment Noted Time PHQ-9 Depression Total Score: 4 11/24/19 21 3:28 PM TRAVEL MANAGER documented as of this encounter Care Teams Hoistman Relationship Specialty Start Date End Date Aminah Zuñiga NP [address] [place] [address] PCP - General NURSE PRACTITIONER 10/24/20 documented as of this encounter
--- OUTSIDE RECORDS SUMMARY | 2025-05-31 14:10 | XMS_ITS | Clinical Summary ---
Author Organization [facility] Address [address] [place] [address] Phone Care Team Providers Care Tobacco Stemmer Machine Name Role Phone Aminah Zuñiga APRN, CNP Primary Care Provid er Social History Tobacco Use Types Packs/Day Years Used Date Smoking Tobacco: Never Assessed Comments Unknown Sex and Gender Information Value Date Recorded Sex Assigned at Not on file Legal Sex Female 9:05 AM CDT Gender Identity Not on file Sexual Orientation Not on file Plan of Treatment Health Maintenance Due Date Last Done Comments Pap Smear 01/13/1988 Cervical Cancer Screening (CCS) 1997 HPV/Cotest 1997 Cologuard 01/13/2012 Colonoscopy 01/13/2012 Colorectal Cancer Screening 01/13/2012 Immunochemical Fecal Occult Blood 01/13/2012 Pneumococcal Immunization (50+ years) (1 of 1 - PCV) 2017 Mammogram 06/25/2024 06/25/2023, 06/16, 05/14/2022, Additional history exists Influenza Immunization (#1) 05/17/202507/18, 10/01/2021, 10/07/2019 SARS-COV-2 Immunization (2024- season) 2025 10/01/2021, 01/05/2021, 12/15/2020 Respiratory Syncytial Virus (RSV) Immunization (Adult) (1 - 1-dose 75+ series) 2042 Hepatitis C Virus (HCV) Screening Completed 12/01/2020 TdaP Immunization Completed 08/06/2022 Zoster Immunization Completed 11/04/2022, Hepatitis B Immunization Completed 023, 01/10/2016, 12/14/2014 Human Papillomavirus (HPV) Immunization Aged Out No longer eligible based on patient's age to complete this topic Meningococcal Immunization (ACWY) Aged Out No longer eligible based on patient's age to complete this topic Rotavirus Immunization Aged Out No lo nger eligible based on patient's age to complete [place] [address] [employer] IFB [facility] O on file Care Teams Tobacco Stemmer Machine Relationship Specialty Start Date End Date Aminah Zuñiga, HIDE SHAKER, PIPE SMOKING MACHINE OFFBEARER [address] [place] [address] PCP - General Advanced Practice Nurse 06/03/24
--- OUTSIDE RECORDS SUMMARY | 2025-05-31 15:36 | XMS_ITS | Encounter Summary ---
Author Organization [facility] Address [address] [place] [address] Care Team Providers Care Gauge Operator Name Role Phone Aminah Zuñiga NP Primary Care Provider +1 -[phone] Encounter Details Date Type Department Care Team (Late st Contact Info) Description 01/04/2021 MyCPatron Technologyt Message Enc [facility] Family Medicine - [place] [address] [facility] [address] [place] [address] Aminah Zuñiga NP [address] [place] [address] follow up on arterial doppler. 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 Gender Identity Female 12/23/2020 11:19 AM CDT [...] [facility] Family Medicine - [place] [address] [facility] [address] [place] [address] Aminah Zuñiga NP [address] [place] [address] documented as of this encounter Visit Diagnoses Not on filedocumented in this encounter Additional Health Concerns Infection Onset Date Last Indicated Resolved Time COVID-19 Rule Out 06/17/2023 06/17/2023 06/17/2023 3:17 PM CDT Assessment Noted Time PHQ-9 Depression Total Score: 4 11/24/19 21 3:28 PM LAND MEASURER documented as of this encounter Care Teams Gauge Operator Relationship Specialty Start Date End Date Aminah Zuñiga NP [address] [place] [address] PCP - General NURSE PRACTITIONER 10/24/20 documented as of this encounter
--- OUTSIDE RECORDS SUMMARY | 2025-05-31 15:36 | XMS_ITS | Encounter Summary ---
Author Organization [facility] Address [address] [place] [address] Care Team Providers Care Crown Assembly Machine Set Up Mechanic Name Role Phone Aminah Zuñiga NP Primary Care Provider +1 -[phone] Encounter Details Date Type Department Care Team (Late st Contact Info) Description 08/19/2024 NodePingt Message Enc [facility] Family Medicine - [place] [address] [facility] [address] [place] [phone] Aminah Zuñiga NP [address] [place] [address] [place] [address] Co2 Social History Tobacco Use [...] AM CDT 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 Gender Identity Female 12/23/2020 11:19 AM CDT Sexual Orientation Choose not to disclose 2021 4:58 AM CDT documented as of this encounter Plan of Treatment Upcoming Encounters Date Type Department Care Team (Late st Contact Info) Description 07/14/2025 2:40 PM CDT Office Visit [facility] Family Medicine [facility] [address] [facility] [address] [place] [address] Aminah Zuñiga NP [address] [place] [address] documented as of this encounter Visit Diagnoses Not on filedocumented in this encounter Additional Health Concerns Assessment Noted Time PHQ-9 Depression Total Score: 4 11/24/19 21 3:28 PM DRAMATIC 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 documented as of this encounter Care Teams Crown Assembly Machine Set Up Mechanic Relationship Specialty Start Date End Date Aminah Zuñiga NP [address] [place] [address] [place] [address] PCP - General NURSE PRACTITIONER 10/24/20 documented as of this encounter
--- OUTSIDE RECORDS SUMMARY | 2025-05-31 15:37 | XMS_ITS | Encounter Summary ---
Author Organization [facility] Address [address] [place] [address] Care Team Providers Care Nuclear Medicine Technologist Name Role Phone Aminah Zuñiga NP Primary Care Provider +1 -[phone] Encounter Details Date Type Department Care Team (Late st Contact Info) Description 03/24/[address] [facility] One Day Services [place], [place] [id number] Christian Pena MD [address] [address] Social History Tobacco Use Types [...] AM CDT 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 TIN FLIPPER Gender Identity Female 12/23/2020 11:19 AM CDT [...] Description 07/14/2025 2:40 PM CDT Office Visit [facility] Family Medicine - [place] [address] [facility] [address] [place] [address] Aminah Zuñiga NP [address] [place] [address] documented as of this encounter Visit Diagnoses Diagnosis Colon cancer screening- Primary Special screening for malignant neoplasms, colon documented in this encounter Additional Health Concerns Infection Onset Date Last Indicated Resolved Time COVID-19 Rule Out 06/17/2023 06/17/2023 06/17/2023 3:17 PM CDT Assessment Noted Time PHQ-9 Depression Total Score: 4 11/24/19 3:28 PM TIN FLIPPER documented as of this encounter Care Teams Nuclear Medicine Technologist Relationship Specialty Start Date End Date Aminah Zuñiga NP [address] [place], [place] [address] PCP - General NURSE PRACTITIONER 10/24/20 documented as of this encounter
--- OUTSIDE RECORDS SUMMARY | 2025-05-31 15:37 | XMS_ITS | Encounter Summary ---
Author Organization 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 Gender Identity Female 12/23/2020 11:19 AM CDT Sexual Orientation Choose not to disclose 2021 4:58 AM CDT documented as of this encounter Plan of Treatment Upcoming Encounters Date Type Department Care Team (Late st Contact Info) Description 07/14/2025 2:40 PM CDT Office Visit [facility] Family [facility] [address] [facility] [address] [place] [address] Aminah Zuñiga NP [address] [place] [address] documented as of this encounter Visit Diagnoses Not on filedocumented in this encounter Additional Health Concerns Assessment Noted Time PHQ-9 Depression Total Score: 4 11/24/19 21 3:28 PM DICE MANAGER documented as of this encounter Care Teams Clinical Research Specialist Relationship Specialty Start Date End Date Aminah Zuñiga NP [address] [place] [address] PCP - General NURSE PRACTITIONER 10/24/20 documented as of this encounter
--- OUTSIDE RECORDS SUMMARY | 2025-05-31 15:37 | XMS_ITS | Encounter Summary ---
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 Gender Identity Female 12/23/2020 11:19 AM CDT Sexual Orientation Choose not to disclose 2021 4:58 AM CDT documented as of this encounter Plan of Treatment Upcoming Encounters Date Type Department Care Team (Late st Contact Info) Description 07/14/2025 2:40 PM CDT Office Visit [facility] Family Medicine - [place] [address] [facility] [address] [place] [address] Aminah Zuñiga NP [address] [place], [place] [phone] documented as of this encounter Visit Diagnoses Not on filedocumented in this encounter Additional Health Concerns Assessment Noted Time PHQ-9 Depression Total Score: 4 11/24/19 21 3:28 PM HAND ROUNDER documented as of this encounter Care Teams Draw Fire Operator Relationship Specialty Start Date End Date Aminah Zuñiga NP [address] [place] [address] PCP - General NURSE PRACTITIONER 10/24/20 documented as of this encounter
--- OUTSIDE RECORDS SUMMARY | 2025-05-31 15:37 | XMS_ITS | Clinical Summary ---
Author Organization [facility] Address [address] [place] [address] Phone Care Team Providers Care Manager Aerospace Name Role Phone Aminah Zuñiga APRN, CNP [...] patient's age to complete [place] [address] MED[employer] IFB [facility] O on file Care Teams Manager Aerospace Relationship Specialty Start Date End Date Aminah Zuñiga, ERECTING CRANE OPERATOR, POLICE CADET [address] [place] [address] PCP - General Advanced Practice Nurse 06/03/24
--- OUTSIDE RECORDS SUMMARY | 2025-05-31 15:37 | XMS_ITS | Clinical Summary ---
Author Organization [facility] Address [address] [place] [address] Care Team Providers Care Group Home Counselor Name Role Phone Aminah Zuñiga NP Primary Care Provider +1 -[phone] Allergies Active Allergy Reactions Criticality Noted Date [...] Type Department Care Team Description 05/25/2025 Telephone [facility] Family Medicine [facility] [address] [address] Aminah Zuñiga NP Employment Physical 03/08/2025 1:40 PM CDT Office Visit [facility] Family & Internal Medicine [facility] [address] [place] [address] Kathia Smith PA Eye Problem [...] AM CDT 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 SENSITOMETRIST Gender Identity Female 12/23/2020 11:19 AM CDT [...] Description 07/14/2025 2:40 PM CDT Office Visit [facility] Family Medicine - [place] [address] [facility] [address] [place] [phone] Aminah Zuñiga NP [address] [place] [address] Health Maintenance Due Date Last Done Comments [...] Zoster Vaccines Completed 11/04/2022, 08/06/2022 PHQ-2 (Physician [place]) Completed 2025 Meningococcal B Vaccine Aged Out [...] Recently Relevant to Health Maintenance Results * [[id number]] CT LUNG SCREENING (02/06/2025 10:30 AM CDT) [...] Narrative 02/15/2025 9:13 AM CDT [place] [id number] EXAM: LUNG SCREENING LOW-DOSE CT THORAX WITHOUT [...] Procedure Note Ephraim Bright MD - 02/15/[address] [address] EXAM: LUNG SCREENING LOW-DOSE CT THORAX WITHOUT [...] Bright MD, 02/15/2025 9:10 AM Aminah Zuñiga MINER PLACER CT Final Res ult * HEMOGLOBIN, GLYCOSYLATED (2025 9:29 AM CDT) HGB A1C 5.3 4.5 - 6.2 % 2025 4:36 PM CDT [facility] ESTIMATED AVG GLUCOSE 105 74 - 106 MG/DL 2025 4:36 PM CDT [facility] 2025 9:29 AM CDT Aminah Zuñiga MINER PLACER LABORATORY Final Res ult [facility] [address] [place] [address], [place] [phone] * MG SCREENING W SHANIQUE SHANE DIGI [...] 4:48 PM Narrative 07/10/2024 4:[address] [facility] [address] [place] [address] EXAMINATION: Digital bilateral screening mammogram with 3-D [...] breast to suggest malignancy. us Aminah Zuñiga MINER PLACER MAMMO Final Res ult * (ABNORMAL) LIPID PANEL (05/07/2024 7:35 AM CDT) CHOLESTEROL 186 <200 MG/DL 05/07/2024 4:39 PM CDT [facility] TRIGLYCERIDES 107 <150 MG/DL 05/07/2024 4:39 PM CDT [facility] HDL 53 >40 MG/DL 05/07/2024 4:39 PM CDT [facility] LDL-C 112(H) <100 MG/DL 05/07/2024 4:39 PM CDT [facility] VLDL CALCULATION 21 5 - 28 MG/DL 05/07/2024 4:39 PM CDT [facility] CHOL/HDL RATIO 3.5 0.0 - 4.0 05/07/2024 4:39 PM CDT [facility] LDL/HDL 2.1 0.41 - 2.13 05/07/2024 4:39 PM CDT [facility] NON HDL CHOLESTEROL 133 <140 MG/DL 05/07/2024 4:39 PM CDT [facility] 05/07/2024 7:35 AM CDT Aminah Zuñiga MINER PLACER LABORATORY Final Res ult [facility] [address] [place] [address], * HEPATITIS C ANTIBODY W/RFX TO HCV [...] a test for HCV RNA (test code 81530) is suggested. For additional information please refer to http://education.Zorap.Oxford Biotrans/faq/WCA47w5 (This link is being provided for informational/ educational purposes only.) 12/01/2020 3:35 PM CDT 12/01/2020 3:36 PM CDT Aminah Zuñiga NP LABORATORY Final Res ult [facility] [address] [place] [address] from Last 3 Months or Most Recently Relevant to Health Maintenance Insurance [facility] Care Teams Group Home Counselor Relationship Specialty Start Date End Date Aminah Zuñiga NP [address] [place] [address] PCP - General NURSE PRACTITIONER 10/24/20
--- OUTSIDE RECORDS SUMMARY | 2025-05-31 15:37 | XMS_ITS | Encounter Summary ---
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 Gender Identity Female 12/23/2020 11:19 AM CDT [...] Description 07/14/2025 2:40 PM CDT Office Visit [facility] Family Medicine - [place] [address] [facility] [address] [place] [address] Aminah Zuñgia NP [address] [place] [address] documented as of this encounter Visit Diagnoses Not on filedocumented in this encounter Additional Health Concerns Infection Onset Date Last Indicated Resolved Time COVID-19 Rule Out 06/17/2023 06/17/2023 06/17/2023 3:17 PM CDT Assessment Noted Time PHQ-9 Depression Total Score: 4 11/24/19 21 3:28 PM FORESTRY LABORER documented as of this encounter Care Teams Division Chair Relationship Specialty Start Date End Date Aminah Zuñiga NP [address] [place] [address] PCP - General NURSE PRACTITIONER 10/24/20 documented as of this encounter
== END 2025-05-31 13:18 | disposition home or self-care (01) ==
LOC: ANHED 13:07
PROVIDERS: Emergency Provider Emergency Medicine; PCP Nurse Practitioner
DX: S61.210A Laceration without foreign body of right index finger without damage to nail, initial encounter (principal); Z87.891 Personal history of nicotine dependence; W27.4XXA Contact with kitchen utensil, initial encounter
CPT/HCPCS: 12001; 73140; 99283

== ENCOUNTER 2025-07-12 12:39 | Outpatient (CLI) | payer OTHER, SELFPAY ==
--- NOTE | ~2025-07-12 | MMUS_ITS ---
EXAMINATION: MM diagnostic eber BI w silvana, US breast LT limited HISTORY: Palpable subareolar left breast mass TECHNIQUE: Additional 3-D tomosynthesis images of the breasts were performed and synthetic 2-D images were generated. CAD analysis was submitted and interpreted. High resolution Limited left breast ultrasound was performed. COMPARISON: None BREAST PARENCHYMAL COMPOSITION: Not Dense: The breasts are almost entirely fatty. FINDINGS: MAMMOGRAPHIC FINDINGS: There are no suspicious masses, calcifications or architectural distortion in either breast to suggest malignancy. There are benign calcifications. ULTRASOUND: Limited left breast ultrasound: At 11:00, 6 cm from the nipple in the area of palpable concern there is a focal calcification with posterior shadowing measuring 7 mm. At 11:00, 6 cm from the nipple there is an oval hypoechoic mass which is partially cystic measuring 9 mm. The margins are circumscribed with parallel orientation, no posterior features and no internal vascularity, likely benign. IMPRESSION: 1. Probable benign left breast mass at 11:00, 6 cm from the nipple. 2. Recommend 6 month follow-up Limited left breast ultrasound BI-RADS category 3, probably benign findings. Reviewed, dictated and finalized at location B. IMPRESSION: 1. Probable benign left breast mass at 11:00, 6 cm from the nipple. 2. Recommend 6 month follow-up Limited left breast ultrasound BI-RADS category 3, probably benign findings.
--- OUTSIDE RECORDS SUMMARY | 2025-07-12 13:57 | XMS_ITS | Encounter Summary ---
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 CONDUCTOR Gender Identity Female 12/23/2020 11:19 AM CDT [...] Team (Late st Contact Info) Description 07/14/2025 3:00 PM CDT Office Visit [facility] Medical [facility] Family Medicine - [place] [address] [facility] [address] [place] [address] Aminah Zuñiga NP [address] [place] [address] documented as of this encounter Visit Diagnoses Not on filedocumented in this encounter Additional Health Concerns Infection Onset Date Last Indicated Resolved Time COVID-19 Rule Out 06/17/2023 06/17/2023 06/17/2023 3:17 PM CDT Respiratory Rule Out 06/30/2025 06/30/2025 025 3:45 PM CDT Assessment Noted Time PHQ-9 Depression Total Score: 4 11/24/19 21 3:28 PM PASSENGER CONDUCTOR documented as of this encounter Care Teams Colors Custodian Relationship Specialty Start Date End Date Aminah Zuñiga NP [address] [place] [address] PCP - General NURSE PRACTITIONER 10/24/20 documented as of this encounter
--- OUTSIDE RECORDS SUMMARY | 2025-07-12 13:57 | XMS_ITS | Encounter Summary ---
Author Organization [facility] Address [address] [place] [address] Care Team Providers Care Bead Forming Machine Set Up Operator Name Role Phone Aminah Zuñiga NP Primary Care Provider [phone] [phone] Encounter Details Date Type Department Care Team (Late st Contact Info) Description 05/20/2024 MyChart Message Enc [facility] Family Medicine - [place] [address] [facility] [address] [place] [address] [phone] Aminah Zuñiga NP [address] [place] [address] OT Social History Tobacco Use [...] AM CDT 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 ALLERGIST/MD Gender Identity Female 12/23/2020 11:19 AM CDT Sexual Orientation Choose not to disclose 2021 4:58 AM CDT documented as of this encounter Plan of Treatment Upcoming Encounters Date Type Department Care Team (Late st Contact Info) Description 07/14/2025 3:00 PM CDT Office Visit [facility] Family Medicine - [place] [address] [facility] [address] [place] [address] Aminah Zuñiga NP [address] [place] [address] documented as of this encounter Visit Diagnoses Not on filedocumented in this encounter Additional Health Concerns Infection Onset Date Last Indicated Resolved Time Respiratory Rule Out 06/30/2025 06/30/2025 025 3:45 PM CDT Assessment Noted Time PHQ-9 Depression Total Score: 4 11/24/19 21 3:28 PM ALLERGIST/MD documented as of this encounter Care Teams Bead Forming Machine Set Up Operator Relationship Specialty Start Date End Date Aminah Zuñiga NP [address] [place] [address] PCP - General NURSE PRACTITIONER 10/24/20 documented as of this encounter
--- OUTSIDE RECORDS SUMMARY | 2025-07-12 13:57 | XMS_ITS | Encounter Summary ---
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 Gender Identity Female 12/23/2020 11:19 AM CDT Sexual Orientation Choose not to disclose 2021 4:58 AM CDT documented as of this encounter Plan of Treatment Upcoming Encounters Date Type Department Care Team (Late st Contact Info) Description 07/14/2025 3:00 PM CDT Office Visit [facility] Medical Group Family Medicine - [place] [address] [facility] [address] [place] [address] Aminah Zuñiga NP [address] [place] [address] documented as of this encounter Visit Diagnoses Not on filedocumented in this encounter Additional Health Concerns Infection Onset Date Last Indicated Resolved Time Respiratory Rule Out 06/30/2025 06/30/2025 025 3:45 PM CDT Assessment Noted Time PHQ-9 Depression Total Score: 4 11/24/19 21 3:28 PM SKIN CARE INSTRUCTOR documented as of this encounter Care Teams General Purchasing Agent Relationship Specialty Start Date End Date Aminah Zuñiga NP [address] [place] [address] PCP - General NURSE PRACTITIONER 10/24/20 documented as of this encounter
--- OUTSIDE RECORDS SUMMARY | 2025-07-12 13:57 | XMS_ITS | Clinical Summary ---
Author Organization [facility] Address [address] [place] [address] Care Team Providers Care Solvent Process Extractor Operator Name Role Phone Aminah Zuñiga NP Primary Care Provider [phone] [phone] Allergies Active Allergy Reactions Criticality Noted Date Comments Iodine Hives,Rash Low 11/23/2020 Shrimp (Diagnostic) Hives,Rash Low 11/23/2020 Tape Rash,Redness,Swelling Low 11/05/2024 Medications omeprazole 20 MG capsule Take 1 capsule (20 mg total) by mouth daily. Active PARoxetine (PAXIL) 10 MG tablet Take 1 tablet (10 mg total) by mouth nightly at bedtime. 023 Active meloxicam (MOBIC) 15 MG tabletIndications :Other chronic pain Take 1 tablet by mouth once daily 30 tablet 024 Active Additional Information Patient not taking.Reported on 2025 gabapentin (NEURONTIN) 100 MG capsuleIndication s:Nerve pain TAKE 1 CAPSULE BY MOUTH THREE TIMES DAILY 90 capsule 025 Active potassium chloride CR (KLOR-CON M) 10 MEQ tabletIndications :Lower extremity edema Take 1 tablet by mouth once daily 90 tablet 1 025 Active furosemide (LASIX) 20 MG tabletIndications :Lower extremity edema Take 1/2 (one-half) tablet by mouth once daily 45 tablet Active albuterol sulfate HFA 108 (90 Base) MCG/ACT inhalerIndication s:Viral upper respiratory tract infection with cough Inhale 2 puffs into the lungs every 4 (four) hours as needed for Wheezing or Shortness of breath. 18 g Active progesterone 100 MG capsule Take 1 capsule (100 mg total) by mouth nightly at bedtime. 022 2024 Discontinued(P t. elected to discontinue med) furosemide (LASIX) 20 MG tabletIndications :Lower extremity edema Take 0.5 tablets (10 mg total) by mouth daily. 90 tablet 1 024 2024 Discontinued furosemide (LASIX) 40 MG tabletIndications :Lower extremity edema Take 1 tablet by mouth once daily 90 tablet 025 2024 Discontinued(D ose adjustment) olopatadine (PATANOL) 0.1 % ophthalmic solutionIndicatio ns:Allergic conjunctivitis of both eyes Place 1 drop into both eyes 2 (two) times daily. 5 mL 025 2024 Discontinued(P t. elected to discontinue med) predniSONE (DELTASONE) 10 mg tabletIndications :Allergic conjunctivitis of both eyes 2 pills daily for 5 days then one pill daily for 5 days 15 tablet 025 2024 Discontinued predniSONE (DELTASONE) 20 MG tabletIndications :Viral upper respiratory tract infection with cough Take 1 tablet (20 mg total) by mouth daily for 5 days. 5 tablet 025 2024 benzonatate (TESSALON PERLES) 100 MG capsuleIndication s:Viral upper respiratory tract infection with cough Take 1 capsule (100 mg total) by mouth 3 (three) times daily as needed for Cough. 20 capsule 025 2024 Active Problems Problem Noted Date Diagnosed Date [...] Encounters Date Type Department Care Team Description 06/30/2025 3:00 PM CDT Office Visit [address] [place] [address] Aminah Zuñiga NP Cough (X4 days now, pt thinks it may be bronchial); Watering Eyes; Wheezing 06/30/2025 Travel 06/30/2025 Telephone [place] [phone] [facility] [address] [place], [place] [phone] Aminah Zuñiga NP Cough; Medication Request 05/31/2025 Scan [employer] [facility] Scanned, [facility] 05/25/[address] [place] [address] Aminah Zuñiga NP Employment Physical from Last 3 Months Immunizations Immunization Administration [...] AM CDT 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 OPERATOR Gender Identity Female 12/23/2020 11:19 AM CDT Sexual Orientation Choose not to disclose 2021 4:58 AM CDT Last Filed Vital Signs Vital Sign Reading Time Taken Comments Blood Pressure 130/82 06/30/2025 3:33 PM CDT Pulse 69 06/30/2025 3:08 PM CDT Temperature 36.6 C (97.8 F) 06/30/2025 3:08 PM CDT Respiratory Rate 16 06/30/2025 3:08 PM CDT Oxygen Saturation 97% 06/30/2025 3:33 PM CDT Inhaled Oxygen Concentration - - Weight 157.9 kg (348 lb) 06/30/2025 3:08 PM CDT Height 167.6 cm (5' 6) 06/30/2025 3:08 PM CDT Body Mass Index 56.17 06/30/2025 3:08 PM CDT Plan of Treatment Upcoming Encounters Date Type Department Care Team (Late st Contact Info) Description 07/14/2025 3:00 PM CDT Office Visit [facility] Family Medicine - [place] [address] [facility] [address] [place] [address] Aminah Zuñiga, WRITER TECHNICAL PUBLICATIONS [address] [place] [address] Health Maintenance Due Date Last Done Comments [...] 05/07/2025 05/07/2024, 12/0 01/2022, 12/01/2020 COVID-19 Vaccine ( season) 2025 10/01/2021, 01/05/2021, 12/15/2020 Influenza Adult (#1) 2025 08/06/2022, 10/01/2021, 10/07/2019, Additional history exists Mammogram Screening 07/10/2025 07/10/2024, 06/25/2023, 05/14/2022, Additional history exists Hemoglobin A1C 07/14/2025 2025, 04/17, 12/01/2020 Annual Physical 2026 2025, 08/06/2022 Lung Cancer Screening 02/06/2026 02/06/2025, 023 Diabetes: Retinopathy Eye Exam 02/11/2026 Postponed from 1985 (Future Appointment) Colorectal Cancer Screening Colonoscopy (10 Years) 03/27/2026 03/27/2021 DTaP, Tdap and Td Vaccines (3 - Td or Tdap) 09/18/2034 09/18/2024, 08/06/2022 Hepatitis A Vaccines Aged Out 01/10/2016, 01/10/2016, 12/14/2014, Additional history exists No longer eligible based on patient's age to complete this topic Hepatitis C Completed 12/01/2020 Zoster Vaccines Completed 11/04/2022, 08/06/2022 PHQ-2 (Physician [place]) Completed 2025 Meningococcal B Vaccine Aged Out No l onger eligible based on patient's age to complete this topic Meningococcal Vaccine Aged Out No digna oanh eligible based on patient's age to complete this topic RSV Immunizations Under 20 Months Aged Out No longer eligible based on patient's age to complete this topic Procedures Procedure Name Priority Date/Time Associated Diagnosis Comments CORONAVIRUS (COVID-19) INFLUENZA A & B ANTIGEN IA PANEL Routine 06/30/2025 Viral upper respiratory tract infection with cough CT LUNG SCREENING Routine 02/06/2025 10: 30 [...] Recently Relevant to Health Maintenance Results * CORONAVIRUS (COVID-19) INFLUENZA A & B ANTIGEN IA PANEL (06/30/2025) CORONAVIRUS ANTIGEN IA NEGATIVE NEGATIVE [address] [place] INFLUENZA A NEGATIVE NEGATIVE [address] [place] INFLUENZA B NEGATIVE NEGATIVE [address] [place] Internal Control: VALID VALID [address] [place] NASAL STRUCTURE / Unknown 06/30/2025 us Aminah Zuñiga NP MICROBIOLOGY - GENERAL OR DERABLES Final Result [address] [place] [address] [place] [address], * [[id number]] CT LUNG SCREENING (02/06/2025 10:30 AM CDT) [...] 9:10 AM Narrative 02/15/2025 9:13 AM CDT [address] [address] EXAM: LUNG SCREENING LOW-DOSE CT THORAX WITHOUT [...] Procedure Note Ephraim Bright MD - 02/15/[address] [address] EXAM: LUNG SCREENING LOW-DOSE CT THORAX WITHOUT [...] Bright MD, 02/15/2025 9:10 AM Aminah Zuñiga WRITER TECHNICAL PUBLICATIONS CT Final Res ult * HEMOGLOBIN, GLYCOSYLATED (2025 9:29 AM CDT) HGB A1C 5.3 4.5 - 6.2 % 2025 4:36 PM CDT [facility] ESTIMATED AVG GLUCOSE 105 74 - 106 MG/DL 2025 4:36 PM CDT [facility] 2025 9:29 AM CDT Aminah Zuñiga WRITER TECHNICAL PUBLICATIONS LABORATORY Final Res ult [facility] [address] [place] [address], * MG SCREENING W SHANIQUE SHANE DIGI [...] 4:48 PM Narrative 07/10/2024 4:51 PM CDT [facility] [address] [place] [address] EXAMINATION: Digital bilateral screening mammogram with 3-D [...] breast to suggest malignancy. us Aminah Zuñiga WRITER TECHNICAL PUBLICATIONS MAMMO Final Res ult * (ABNORMAL) LIPID PANEL (05/07/2024 7:35 AM CDT) Pathologist [facility] CHOLESTEROL 186 <200 MG/DL 05/07/2024 4:39 PM CDT [facility] TRIGLYCERIDES 107 <150 MG/DL 05/07/2024 4:39 PM CDT [facility] HDL 53 >40 MG/DL 05/07/2024 4:39 PM CDT [facility] LDL-C 112(H) <100 MG/DL 05/07/2024 4:39 PM CDT [facility] VLDL CALCULATION 21 5 - 28 MG/DL 05/07/2024 4:39 PM CDT [facility] CHOL/HDL RATIO 3.5 0.0 - 4.0 05/07/2024 4:39 PM CDT [facility] LDL/HDL 2.1 0.41 - 2.13 05/07/2024 4:39 PM CDT [facility] NON HDL CHOLESTEROL 133 <140 MG/DL 05/07/2024 4:39 PM CDT [facility] 05/07/2024 7:35 AM CDT us Aminah Zuñiga WRITER TECHN[employer] PUBLICATION[employer] LABORATORY Final Res ult [facility] [address] [place] [address], * HEPATITIS C ANTIBODY W/RFX TO HCV [...] a test for HCV RNA (test code 25076) is suggested. For additional information please refer to http://education.eGistics/faq/JOF30f5 (This link is being provided for informational/ educational purposes only.) 12/01/2020 3:35 PM CDT 12/01/2020 3:36 PM CDT Aminah Zuñiga WRITER TECHNICAL PUBLICATIONS LABORATORY Final Res ult [facility] [address] [address] [id number] from Last 3 Months or Most Recently Relevant to Health Maintenance Insurance [facility] [place] [address] Care Teams Solvent Process Extractor Operator Relationship Specialty Start Date End Date Aminah Zuñiga NP [address] [place] [address] PCP - General NURSE PRACTITIONER 10/24/20
--- OUTSIDE RECORDS SUMMARY | 2025-07-12 13:57 | XMS_ITS | Encounter Summary ---
Author Organization [facility] Address [address] [place] [address] Care Team Providers Care Radiator Cleaner Name Role Phone Aminah Zuñiga NP Primary Care Provider [phone] [phone] Encounter Details Date Type Department Care Team (Late st Contact Info) Description 08/19/2024 [employer] Message Enc [facility] Medical Group Family Medicine - [place] [address] [facility] [address] [place] [phone] Aminah Zuñiga NP [address] [place] [address] Co2 Social History Tobacco Use [...] AM CDT 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 RECORD PRESS TENDER Gender Identity Female 12/23/2020 11:19 AM CDT Sexual Orientation Choose not to disclose 2021 4:58 AM CDT documented as of this encounter Plan of Treatment Upcoming Encounters Date Type Department Care Team (Late st Contact Info) Description 07/14/2025 3:00 PM CDT Office Visit [facility] Medical Group Family Medicine - [place] [address] [facility] [address] [place] [address] Aminah Zuñiga NP [address] [place] [address] documented as of this encounter Visit Diagnoses Not on filedocumented in this encounter Additional Health Concerns Infection Onset Date Last Indicated Resolved Time Respiratory Rule Out 06/30/2025 06/30/2025 025 3:45 PM CDT Assessment Noted Time PHQ-9 Depression Total Score: 4 11/24/19 21 3:28 PM RECORD PRESS TENDER documented as of this encounter Care Teams Radiator Cleaner Relationship Specialty Start Date End Date Aminah Zuñiga NP [address] [place] [address] PCP - General NURSE PRACTITIONER 10/24/20 documented as of this encounter
--- OUTSIDE RECORDS SUMMARY | 2025-07-12 13:57 | XMS_ITS | Encounter Summary ---
Author Organization [facility] Address [address] [place] [address] Care Team Providers Care Aerodynamicist Name Role Phone Aminah Zuñiga NP Primary Care Provider [phone] [phone] Encounter Details Date Type Department Care Team (Late st Contact Info) Description 03/24/2021 Prep for Procedure [facility] [place], [place] [phone] Christian Pena MD [address] [address] Social History Tobacco Use Types [...] AM CDT 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 EQUIPMENT PROCESSER STORAGE Gender Identity Female 12/23/2020 11:19 AM CDT [...] Description 07/14/2025 3:00 PM CDT Office Visit [facility] Medical Group Family Medicine - [place] [address] [facility] [address] [place] [address] Aminah Zuñiga NP [address] [place] [address] documented as of this encounter Visit Diagnoses Diagnosis Colon cancer screening- Primary Special screening for malignant neoplasms, colon documented in this encounter Additional Health Concerns Infection Onset Date Last Indicated Resolved Time COVID-19 Rule Out 06/17/2023 06/17/2023 06/17/2023 3:17 PM CDT Respiratory Rule Out 06/30/2025 06/30/2025 025 3:45 PM CDT Assessment Noted Time PHQ-9 Depression Total Score: 4 11/24/19 3:28 PM EQUIPMENT PROCESSER STORAGE documented as of this encounter Care Teams Aerodynamicist Relationship Specialty Start Date End Date Aminah Zuñiga NP [address] [place] [address] PCP - General NURSE PRACTITIONER 10/24/20 documented as of this encounter
--- OUTSIDE RECORDS SUMMARY | 2025-07-12 13:57 | XMS_ITS | Encounter Summary ---
Author Organization [facility] Address [address] [place] [address] Care Team Providers Care Fire Information Officer Name Role Phone Aminah Zuñiga NP Primary Care Provider +1 -[phone] Encounter Details Date Type Department Care Team (Late st Contact Info) Description 01/04/2021 [employer]CG[employer]ery AlShar[employer] Message Enc [facility] Medical Group Family Medicine - [place] [address] [facility] [address] [place] [phone] Aminah Zuñiga NP [address] [place] [address] follow up on arterial doppler. 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 SET UP OPERATOR Gender Identity Female 12/23/2020 11:19 AM [...] Description 07/14/2025 3:00 PM CDT Office Visit [facility] Medical Group Family Medicine - [place] [address] [facility] [address] [place] [address] Aminah Zuñiga NP [address] [place] [address] documented as of this encounter Visit Diagnoses Not on filedocumented in this encounter Additional Health Concerns Infection Onset Date Last Indicated Resolved Time COVID-19 Rule Out 06/17/2023 06/17/2023 06/17/2023 3:17 PM CDT Respiratory Rule Out 06/30/2025 06/30/2025 025 3:45 PM CDT Assessment Noted Time PHQ-9 Depression Total Score: 4 11/24/19 21 3:28 PM TOOL SHAPER SET UP OPERATOR documented as of this encounter Care Teams Fire Information Officer Relationship Specialty Start Date End Date Aminah Zuñiga NP [address] [place] [address] PCP - General NURSE PRACTITIONER 10/24/20 documented as of this encounter
--- OUTSIDE RECORDS SUMMARY | 2025-07-12 13:57 | XMS_ITS | Clinical Summary ---
Author Organization [facility] Address [address] [place] [address] Phone Care Team Providers Care Control Room Operator Name Role Phone Aminah Zuñiga APRN, CNP [...] patient's age to complete this [place] [address] [facility] O on file Care Teams Control Room Operator Relationship Specialty Start Date End Date Aminah Zuñiga, [place], JOB COST ESTIMATOR [address] [place] [address] PCP - General Advanced Practice Nurse 06/03/24
== END 2025-07-12 12:40 | disposition home or self-care (01) ==
PROVIDERS: PCP Nurse Practitioner; Visit Provider Obstetrics & Gynecology
DX: N63.42 Unspecified lump in left breast, subareolar (principal); R92.8 Other abnormal and inconclusive findings on diagnostic imaging of breast
CPT/HCPCS: 76642; 77062; 77066; G0279